=== PATIENT | male | born 1955 | race Caucasian/White ===

== ENCOUNTER 2023-02-09 14:10 | Inpatient (IN) | payer MEDICARE, MEDICAID, SELFPAY ==
--- NOTE | 2023-02-09 | EEG_ITS ---
FINDINGS: The waking background activity consists of low-voltage fast frequencies seen diffusely intermixed with a low-voltage posterior 10 hertz alpha frequency. Photic stimulation is without activation. Brief periods of drowsiness are characterized by mild background slowing. No focal, lateralizing, or paroxysmal discharges are seen. Frequent eye movement and eye opening artifacts are noted. IMPRESSION: This waking EEG is considered within normal limits. MD KEILA Álvarez/AILEEN / [phone]
--- NOTE | ~2023-02-09 | CT_ITS ---
EXAMINATION: CT HEAD WITHOUT CONTRAST (STROKE PROTOCOL) CLINICAL INFORMATION: Stroke protocol. Acute onset altered mental status. COMPARISON: None available. TECHNIQUE: Contiguous axial imaging was performed from the skull base to vertex without intravenous administration of contrast. This CT examination was performed using dose optimization techniques as appropriate, variously including the following: *Automated exposure control *Adjustment of mA and/or kV according to patient size (this includes techniques or standardized protocols for targeted exams where dose is matched to indication/reason for exam; i.e. extremities or head) *Use of iterative reconstruction technique DLP: 762.57 mGy-cm FINDINGS: Ventricles, sulci and cisterns are abnormally dilated. There is no midline shift, no abnormal intra- or extra- axial fluid accumulation. Kumar and white matter differentiation is normal. Bone window images show no evidence of skull fracture. There is prominent bowing of anterior nasal septum to the left. Semilunar shaped polypoid mucosal lesion is seen at anterior wall of right maxillary sinus measuring 1.4 cm in AP diameter, 2.4 cm in width. Moderate mucosal thickening is seen at the floor of left maxillary sinus. Bilateral ethmoid sinuses show marked mucosal thickening and opacification. Moderate circumferential mucosal thickening of left frontal sinus is also seen. CT/CT head for stroke IMPRESSION: 1. Prominent age related cerebral atrophy and ventriculomegaly. 2. No intracranial hemorrhage or skull fracture is seen. 3. No evidence of space occupying lesion could be found. 4. The current plain CT scan of the brain shows no diagnostic evidence of acute cerebral infarction. 5. Marked bilateral ethmoid sinusitis and right maxillary sinus polypoid mucosal lesion are seen. This critical result was discussed with Dr. Juan Valderrama at 1428 hours on 02/09/2023. It was ascertained that the content and urgency of the report was understood at the time of direct communication.
--- NOTE | ~2023-02-09 | XR_ITS ---
EXAMINATION: XR CHEST CLINICAL INFORMATION: Shortness of breath. COMPARISON: Chest radiograph 05/15/2017. TECHNIQUE: AP view of the chest was obtained. FINDINGS: Prominent cardiomediastinal silhouette with sternal wires, sternal fixation plate and multiple surgical clips. Surgical suture chains projecting over the left upper lobe. Background of diffuse interstitial thickening and central peribronchial cuffing. No pleural effusion or pneumothorax. Chronic bilateral rib fractures with callus formation. Surgical clips overlying the epigastrium and left upper quadrant. Stable mild asymmetric elevation of the left hemidiaphragm. XR/XR chest 1V IMPRESSION: Diffuse interstitial prominence and central peribronchial cuffing suggestive of an atypical infectious/inflammatory process and also some degree of pulmonary edema. Recommend short-term follow-up radiograph to ensure resolution.
--- NOTE | ~2023-02-09 | CT_ITS ---
EXAMINATION: CT ANGIOGRAM HEAD CT ANGIOGRAM NECK CLINICAL INFORMATION: Reason for Exam cva COMPARISON: Same day head CT TECHNIQUE: Test bolus sequences followed by intravenous administration 70 mL of Omnipaque 350. Helical imaging was performed in the axial plane from the aortic arch to the skull vertex. Delayed postcontrast imaging of the head was also performed. The data was processed at the mining engineering technologist's workstation for generation of MIP sequences. Angled MIPs and volume rendered reformatted images were also generated at an offline 3D workstation. Stenoses are assessed in accordance with Cantrell et al. Quantification of Carotid Stenosis on CT Angiography. AJR 2006. 27(1):13-19. This CT examination was performed using dose optimization techniques as appropriate, variously including the following: *Automated exposure control *Adjustment of mA and/or kV according to patient size (this includes techniques or standardized protocols for targeted exams where dose is matched to indication/reason for exam; i.e. extremities or head) *Use of iterative reconstruction technique DLP: 1592.91 mGy-cm FINDINGS: CT HEAD: Noncontrast head CT findings discussed separately. No pathologic intra-axial enhancement or regional oligemia. Chronic left orbital floor fracture deformity seen medial to the infraorbital foramen with some herniated inferior extraconal fat through the defect. Moderate paranasal sinus mucosal disease. CTA HEAD: Calcific plaque of the proximal intradural left vertebral artery appears to contribute to at least mild stenosis, noting motion artifact limits assessment for accurate grading of luminal patency. Calcific plaque along the bilateral carotid siphons contributes to mild to moderate left cavernous and mild to moderate right distal cavernous ICA stenosis. Otherwise no significant stenosis or occlusion in the anterior or posterior circulation. 2 mm infundibular origin arising from the right terminal ICA at the right posterior communicating artery origin. No aneurysms and no high flow vascular malformations. Timing of the contrast bolus allows assessment of the major dural venous sinuses, which all opacify normally CTA NECK: Classic 3 vessel branching pattern of the aortic arch. Mild partially calcified atherosclerotic disease of the aortic arch and great vessel origins. The origins of the great vessels are patent. Significant motion artifact compromises diagnostic assessment of the cervical arterial vasculature. Densely calcified atherosclerotic plaque at the left carotid bulb results in some degree of luminal narrowing, not diagnostically assessed due to degree of motion artifact. Peripherally calcified eccentric fibrofatty plaque of the distal right cervical ICA contributes to approximately 50% luminal narrowing. The right vertebral artery is dominant. Nondiagnostic assessment of the bilateral vertebral artery origins. Otherwise, both vertebral arteries are widely patent throughout their extracranial cervical course. CT NECK: The patient is largely edentulous with a single horizontally impacted tooth within the anterior left maxilla remaining. Motion artifact limits diagnostic assessment of the neck soft tissues. Asymmetric skin thickening and subcutaneous edema in the left face versus artifact can be correlated with physical examination. Patulous upper thoracic esophagus with air-fluid level more inferiorly. Status post median sternotomy and CABG. Suspected emphysematous changes in the lungs and left upper lobe postsurgical scarring. Reversal of the lower cervical lordosis and cervical spondylitic changes. Multilevel high-grade neural foraminal narrowing. Leftward curvature at the cervicothoracic junction and mild rightward upper thoracic curvature. CT/CT angio head neck stroke IMPRESSION: 1. No hemodynamically significant stenosis or occlusion in the head or neck, noting nondiagnostic assessment of the bilateral vertebral artery origins. This critical result was discussed with Dr. Valderrama at 2:49 PM on 02/09/2023 and it was ascertained that the content and urgency of the report was understood at the time of direct communication. 2. Densely calcified atherosclerotic plaque at the left carotid bulb results in some degree of luminal narrowing, not diagnostically assessed due to degree of motion artifact. 3. Peripherally calcified eccentric fibrofatty plaque of the distal right cervical ICA contributes to approximately 50% luminal narrowing. 4. Calcific plaque of the proximal intradural left vertebral artery appears to contribute to at least mild stenosis, noting motion artifact limits accurate grading of luminal patency.
--- NOTE | 2023-02-09 14:12 | ED_ITS ---
HPI - Neuro Symptoms/Deficit General Chief Complaint: Altered Mental Status Stated Complaint: STROKE ALERT,LKW 45 MINS AGO Time Seen by Provider: 02/09/23 14:12 Source: RN notes reviewed Mode of arrival: EMS Limitations: no limitations History of Present Illness HPI Narrative: Patient with multiple psych disorders including schizophrenia dementia came from residential for decreased responsiveness. Patient was seen normal at 9 a.m. walking down stairs at 115 p.m. patient was in his bed confused when EMS reached patient was saturating in high 80s with generalized weakness and left facial droop was noticed, no seizure active overall patient was weak Related Data Home Medications Medication Instructions Recorded Confirmed aspirin 81 mg tablet,delayed 81 mg PO DAILY 02/09/23 02/09/23 release atorvastatin 40 mg tablet 40 mg PO BEDTIME 02/09/23 02/09/23 chlorpromazine 100 mg tablet 100 mg PO BEDTIME 02/09/23 02/09/23 cholecalciferol (vitamin D3) 1,250 1,250 mcg PO QMONTH 02/09/23 02/09/23 mcg (50,000 unit) tablet divalproex 250 mg tablet,extended 250 mg PO BEDTIME 02/09/23 02/09/23 release 24 hr divalproex 500 mg tablet,extended 1,000 mg PO BEDTIME 02/09/23 02/09/23 release 24 hr fluticasone furoate 100 1 inh inhalation DAILY 02/09/23 02/09/23 mcg-vilanterol 25 mcg/dose inhalation powder (Breo Ellipta) metoprolol succinate 25 mg 25 mg PO DAILY 02/09/23 02/09/23 tablet,extended release 24 hr ranolazine 500 mg tablet,extended 500 mg PO BID 02/09/23 02/09/23 release,12 hr valsartan 80 mg tablet 80 mg PO BID 02/09/23 02/09/23 Allergies Allergy/AdvReac Type Severity Reaction Status Date / Time haloperidol [From Haldol] Allergy Unknown Verified 02/09/23 14:58 Penicillins Allergy Unknown Verified 02/09/23 14:58 Review of Systems 2 Review of Systems: Yes Unobtainable due to mental status PMFSH Past Medical History Medical History TIA (transient ischemic attack) CAD (coronary artery disease) PTSD (post-traumatic stress disorder) HTN (hypertension) Schizoaffective disorder COPD (chronic obstructive pulmonary disease) Dementia Surgical History Hx of CABG Social History Social History Smoked in Last 30 Days: Yes Use of substances other than those prescribed or required for medical reasons: No Advance Directives: No Advance Directives Information Provided: No Physical Exam 2 Vital Signs: Vital Signs: Last Vital Signs Temp 97.5 F 02/09/23 14:47 Pulse 79 02/09/23 20:13 Resp 16 02/09/23 20:13 BP 124/67 02/09/23 20:13 Pulse Ox 99 02/09/23 20:13 O2 Del Method Nasal Cannula 02/09/23 20:13 O2 Flow Rate 4 02/09/23 20:13 Oxygen Flow Rate 4 02/09/23 14:38 BMI result Body Mass Index 25.0 Appearance: Alert. Oriented X3. No acute distress. Eyes: PERRLA, No Nystagmus ENT: Pharynx normal. Oral Mucosa moist Neck: Normal inspection. Neck supple. CVS: Normal heart rate and rhythm. Pulses normal. Respiratory: No respiratory distress. Equal air entry bilateral, bilateral character of Abdomen: Soft and nontender. Bowel sounds are present, no mass palpable, no CVA tenderness Skin: Skin warm and dry. Normal skin color. Normal skin turgor. Extremities: No lower extremity edema. No calf tenderness Neuro: Alert but confused with garbled speech. Moving all 4 extremities right than the left? Left facial droop Course Reevaluation(s) Reevaluation #1: Patient showed remarkable improvement punching and pushing nursing staff, no deficit noticed speech is better ?TIA vs hypoxic will hold TNK Time: 14:47 Medications Administered Generic Name Dose Route Start Last Admin Trade Name Freq PRN Reason Stop Dose Admin Atorvastatin Calcium 40 mg 02/09/23 21:00 02/09/23 21:21 Atorvastatin Calcium 40 Mg Tablet PO Not Given BEDTIME NILAM Chlorpromazine HCl 100 mg 02/09/23 21:00 12 21:21 Chlorpromazine Hcl 100 Mg Tablet PO Not Given BEDTIME NILAM Divalproex Sodium 250 mg 02/09/23 21:00 12/05/23 21:22 Divalproex Sodium Er 250 Mg Tab.Er.24h PO Not Given BEDTIME NILAM Divalproex Sodium 1,000 mg 02/09/23 21:00 02/09/23 21:22 Divalproex Sodium Er 500 Mg Tab.Er.24h PO Not Given BEDTIME NILAM Enoxaparin Sodium 40 mg 02/09/23 20:00 02/09/23 21:15 Enoxaparin Sodium 40 Mg/0.4 Ml Syringe SUBCUT Not Given Q24H NILAM Sodium Chloride 1,000 mls @ 100 mls/hr 02/09/23 19:30 02/09/23 21:08 Ns IVCONT 100 mls/hr .Q10H NILAM Administration Ranolazine 500 mg 02/09/23 21:00 02/09/23 21:22 Ranolazine 500 Mg Tab.Er.12h PO Not Given BID NILAM Valsartan 80 mg 02/09/23 21:00 02/09/23 21:22 Valsartan 80 Mg Tablet PO Not Given BID [facility] Protocol Discontinued Medications Generic Name Dose Route Start Last Admin Trade Name Freq PRN Reason Stop Dose Admin Aspirin 300 mg 02/09/23 19:27 02/09/23 21:14 Aspirin 300 Mg Supp.Rect MS 02/09/23 19:28 Not Given ONCE ONE Sodium Chloride 1,000 mls @ 999 mls/hr 02/09/23 17:26 02/09/23 18:05 Ns IV 02/09/23 18:26 999 mls/hr .Q1H1M ONE Administration Iohexol 100 ml 02/09/23 14:35 02/09/23 14:35 Iohexol 350 Mg/Ml 100 Ml Infus..Btl IV 02/09/23 14:36 70 ml ONCE ONE Administration Lorazepam 1 mg 02/09/23 14:44 02/09/23 14:48 Lorazepam 2 Mg/Ml Vial IVPUSH 02/09/23 14:45 1 mg ONCE ONE Administration Medical Decision Making Medical Decision Making MDM Narrative: Patient with acute change in mental status with left-sided facial droop and transient left-sided weekness CT head CTA negative for acute possible patient has TIA. Patient is still confused from his baseline per nursing staff patient is up alert take your that in the ER patient is more confused not at his baseline. Etiology not very clear we will admit patient for metabolic encephalopathy questionable TIA Differential Diagnosis Differential Diagnoses: The differential diagnosis associated with the presentation includes Metabolic encephalopathy/TIA/CVA/seizure/hypoxia/CHF Admission/Observation Consideration of admission/observation: Escalation of care including admission/observation considered Consult Healthcare Provider Management of the patient was discussed with: Hospitalist Lab Data MDM Lab Attestation statement: I reviewed the patient's lab results. 02/09/23 15:02 02/09/23 15:02 Labs: Lab Results 02/09/23 02/09/23 02/09/23 Range/Units 14:37 15:02 15:07 WBC 8.2 (4.8-10.8) X10*3/uL RBC 5.02 (4.60-5.80) X10*6/uL Hgb 15.2 (14.0-18.0) g/dl Hct 46.1 (42.0-52.0) % MCV 91.8 (80.0-98.0) fL MCH 30.3 (27.0-33.0) pg MCHC 33.0 (31.0-36.0) g/dl RDW 14.1 (11.0-16.0) % Plt Count 178 (160-400) X10*3/uL MPV 9.4 (9.4-12.4) fL Immature Gran % (Auto) 0.6 H (0.0-0.4) % Neut % (Auto) 77.8 H (45-73) % Lymph % (Auto) 15.4 L (20-40) % [place] % (Auto) 4.5 (2-11) % Eos % (Auto) 1.2 (0-4) % Baso % (Auto) 0.5 (0-2) % Lymph # (Auto) 1.3 (1.2-4.9) X10*3/uL [place] # (Auto) 0.4 (0.1-1.2) X10*3/uL Eos # (Auto) 0.1 (0.0-0.4) X10*3/uL Baso # (Auto) 0.0 (0.0-0.2) X10*3/uL Abs Immat Gran (auto) 0.05 H (0.00-0.03) X10*3/uL Absolute Neuts (auto) 6.4 (2.0-8.3) x10*3/uL Absolute Nucleated RBC 0.000 (0.0-0.012) X10*3/uL Nucleated RBC % (auto) 0.0 (0.0-0.2) /100WBC PT 11.8 (11.1-13.3) SEC INR 1.0 (0.9-1.1) APTT 36.6 H (26.0-36.4) SEC VBG pH 7.40 (7.32-7.43) VBG pCO2 36 mmHg VBG pO2 86 mmHg VBG HCO3 23 (22-26) mmol/L VBG O2 Saturation 98.0 % VBG Base Excess -1.1 mmol/L Sodium 139 (135-145) mmol/L Potassium 4.1 (3.3-5.1) mmol/L Chloride 107 (96-108) mmol/L Carbon Dioxide 23 (22-29) mmol/L Anion Gap 13 (12-20) BUN 23 H (9-16) mg/dL Creatinine 0.73 (0.5-1.4) mg/dL Estim Creat Clear Calc 90.5 Estimated GFR > 60 POC Glucose 85 (60-115) mg/dL Random Glucose 89 (60-115) mg/dL Calcium 8.9 (8.4-10.2) mg/dL Total Bilirubin 0.7 (0.0-1.0) mg/dL AST 19 (5-37) U/L ALT 12 (0-40) U/L Alkaline Phosphatase 57 (39-117) U/L Total Creatine Kinase 71 (38-174) U/L Troponin I High Sens 5.7 (<3.5-35.0) ng/L B-Natriuretic Peptide 34 (<100) pg/mL Total Protein 6.5 (6.5-8.0) g/dL Albumin 3.8 (3.5-5.0) g/dL Triglycerides 84 (<150) mg/dL Cholesterol 98 (<200) mg/dL LDL Cholesterol, Calc 57 (<100) mg/dL HDL Cholesterol 25 L (>40) mg/dL Valproic Acid 32.5 L (50.0-100.0) mcg/mL ABG Data Attestation ABG: I personally reviewed and interpreted this ABG as follows: Interpretation: Normal venous gas Independent Interpretation I performed an independent interpretation of an: EKG and CT Scan Interpretation: Normal sinus rhythm heart rate 82 beats per minute left bundle-branch block no acute ST T wave changes no ischemia Radiology Impression Discussion of test interpretation with radiology: I have reviewed the radiologist's reading. Radiologist Impression: Negative CT scan of the head and CTA negative for LVO Independent Historian Clinical information obtained from an independent historian. History obtained from or confirmed by: EMS and Other (RN) External Record Review External record reviewed: Outpatient record NIH Stroke Scale Internal: Initial- Upon Arrival Time: 14:10 Level of Consciousness: Alert Level of Consciousness Questions: Answers one question correctly Level of Consciousness Commands: Performs both tasks correctly Best Gaze: Normal Visual: No visual loss Facial Palsy: Minor paralyis Motor Arm (Right): No drift Motor Arm (Left): Drift Motor Leg (Right): No drift Motor Leg (Left): Drift Limb Ataxia: Absent Sensory: Normal Best Language: No aphasia Dysarthia: Normal Extinction and Inattention: No abnormality Score: 4 Discharge Plan Discharge Clinical Impression: Acute encephalopathy Patient Disposition: Admitted As Inpatient
--- NOTE | 2023-02-09 14:13 | ECG_ITS ---
Test Reason : AMS Blood Pressure : / mmHG Vent. Rate : 082 BPM Atrial Rate : 082 BPM P-R Int : 164 ms QRS Dur : 172 ms QT Int : 430 ms P-R-T Axes : 045 020 087 degrees QTc Int : 502 ms Normal sinus rhythm Left bundle branch block Abnormal ECG No previous ECGs available Referred By: Juan Valderrama Electronically Signed By:KRISTI DIAS
[2023-02-09 14:17] VITALS: BP 112/72; PULSE 80; O2SAT 80
[2023-02-09] MEDS: iohexoL 350 MG/ML 100 ML INFUS..BTL IV (14:35)
[2023-02-09 14:38] VITALS: BP 143/81; PULSE 82; RESP 23; O2SAT 99; BMI 25.0
[2023-02-09 14:47] VITALS: TEMP 36.4
[2023-02-09] MEDS: LORazepam 2 MG/ML VIAL 1 MG IVPUSH (14:48)
[2023-02-09 14:51] LABS: Glucose, Whole Blood 85 mg/dL (60-115)
[2023-02-09 15:06] LABS: MANUAL DIFF FLAG NO
[2023-02-09 15:09] LABS: Basophils Percent Auto 0.5 % (0-2); Eosinophils Absolute Auto 0.1 X10*3/uL (0.0-0.4); Eosinophils Percent Auto 1.2 % (0-4); Hematocrit 46.1 % (42.0-52.0); Hemoglobin 15.2 g/dl (14.0-18.0); Imm Gran Abs Auto 0.05 X10*3/uL (0.00-0.03); Imm Gran Pct Auto 0.6 % (0.0-0.4); Lymphocytes Absolute Auto 1.3 X10*3/uL (1.2-4.9); Lymphocytes Percent Auto 15.4 % (20-40); Mean Corpuscular Hemoglobin 30.3 pg (27.0-33.0); Mean Corpuscular Volume 91.8 fL (80.0-98.0); Mean Platelet Volume 9.4 fL (9.4-12.4); Monocytes Absolute Auto 0.4 X10*3/uL (0.1-1.2); Monocytes Percent Auto 4.5 % (2-11); Neutrophils Absolute Auto 6.4 x10*3/uL (2.0-8.3); Neutrophils Percent Auto 77.8 % (45-73); Platelet Count 178 X10*3/uL (160-400); Red Blood Count 5.02 X10*6/uL (4.60-5.80); Red Cell Distribution Width 14.1 % (11.0-16.0); White Blood Count 8.2 X10*3/uL (4.8-10.8)
--- NOTE | 2023-02-09 15:09 | MHC.STROKE ---
1410 ARRIVED VIA EMS UNRESPONSIVE LEFT DROOP, STROKE PROTOCOL ACTIVATED, CTH NO BLEED. LAST KNOWN WELL 0900 THEN HE WAS NOT SEEN AGAIN UNTIL [id number] DISCOVERY TIME. FOUND SLOW TO RESPOND, INCONSISTENT EXAM BILATERAL ARM NO MOVEMENT AT TIMES THEN SLIGHT MOVEMENT, [place] LEGS RESTLESS, LEFT DROOP BUT HE DOES NOT HAVE ANY TEETH IN, SLIGHT GAZE AND NEGLECT. GURGLING, UNABLE TO CLEAR HIS THROAT, NOT FOLLOWING ANY COMMANDS, NO UNILATERAL NEURO FINDINGS THAT ARE CONSISTENT. NIHSS = 20, NPO FAILED SWALLOW SCREEN. DISCUSSED TIMELINE AND EXAM WITH DR. CRENSHAW AND WITH DR. WALSH AND MARIA LUZ 899. TNK CONTRAINDICATED.
[2023-02-09 15:11] LABS: Venous Blood Gas Refer to POC result
[2023-02-09 15:11] LABS: VBG Base Excess -1.1 mmol/L; VBG HCO3 23 mmol/L (22-26); VBG pCO2 36 mmHg; VBG pO2 86 mmHg
[2023-02-09 15:14] LABS: Prothrombin Time 11.8 SEC (11.1-13.3)
[2023-02-09 15:17] LABS: Partial Thromboplastin Time 36.6 SEC (26.0-36.4)
[2023-02-09 15:28] LABS: Alanine Aminotransferase 12 U/L (0-40); Albumin Level 3.8 g/dL (3.5-5.0); Alkaline Phosphatase 57 U/L (39-117); Anion Gap 13 (12-20); Aspartate Amino Transferase 19 U/L (5-37); Bilirubin Total 0.7 mg/dL (0.0-1.0); Blood Urea Nitrogen 23 mg/dL (9-16); Calcium 8.9 mg/dL (8.4-10.2); Carbon Dioxide 23 mmol/L (22-29); Chloride 107 mmol/L (96-108); Creatinine Clr Calc Pharmacy 90.5; Estimated Glomerular Filt Rate > 60; Glucose Random 89 mg/dL (60-115); Potassium 4.1 mmol/L (3.3-5.1); Sodium 139 mmol/L (135-145); Total Protein 6.5 g/dL (6.5-8.0)
[2023-02-09 15:31] LABS: Troponin-I High Sensitivity 5.7 ng/L (<3.5-35.0)
--- NOTE | 2023-02-09 15:40 | PC.NURSE ---
pt CRISSYA from [facility] for ? stroke alert. EMS reporting L sided facial droop. pt A&Ox3 at baseline, went out to smoke a cigarette at 0900 this morning. when staff checked on him at approx 1315 pt was unresponsive in bed, had a L sided facial droop, was weak and moaning. pt required suction to oral airway x2 as he was unable to manage his own secretions. SaO2 low 80s - started on a NRB 15L O2 came up to 95%. EMS placed an 18G in the LAC. POC 96 for EMS
[2023-02-09 16:06] LABS: Stroke Lab Use COMPLETE
[2023-02-09 16:09] LABS: B Type Natriuretic Peptide 34 pg/mL (<100)
[2023-02-09 16:10] LABS: Valproate 32.5 mcg/mL (50.0-100.0)
--- NOTE | 2023-02-09 17:05 | PHA.MEDREC ---
Pharmacy Consult ? Medication Reconciliation Pharmacy has completed the medication reconciliation. Patient came from [facility] with a medication list. Rebeca Patino, aloD
--- NOTE | 2023-02-09 17:12 | PC.NURSE ---
mission care staff report pts baseline is alert and ambulatory, able to speak clearly and in full sentences, able to maintain saliva. no seizure hx.
[2023-02-09 17:46] VITALS: BP 125/98; RESP 26; O2SAT 96
[2023-02-09] MEDS: 0.9 % Sodium Chloride 1,000 ML 999 ML IV (18:05)
--- NOTE | 2023-02-09 18:25 | PC.NURSE ---
pt incontinent of urine. linens changed. rolled pt - he became combative, swearing at staff. stopped once linens back in order. [place] placed on pt for urine collection
--- NOTE | 2023-02-09 19:34 | P.HPHOSP_ITS ---
History of Present Illness Date of Service: 02/09/23 Attending physician on admission: Rodrigo Cifuentes Chief Complaint: ams, left facial droop 67-year-old male with history of TIA, CAD s/p CABG, ischemic cardiomyopathy, aortic insufficiency, unspecified CHF, COPD, vascular dementia with mood disorder, schizoaffective disorder, hypertension, and idiopathic neuropathy presents to the ED earlier today via EMS from [facility] where he resides for evaluation of unresponsiveness, altered mental status and left-sided facial droop. Per SNF staff, patient awoke this morning and was ambulatory around 09:00. Around 115 this afternoon, patient was found unresponsive in bed with oximetry 80%. When aroused, he was noted to have left-sided facial droop, generalized weakness, confusion and was noted to be moaning. Per staff, his baseline is alert and oriented with some confusion. EMS was called and patient was suctioned x2 and placed on non-rebreather maintaining oximetry of 95%. No known seizure history. He arrived to the ED on stroke alert. Vitals at the time revealed a mild hypertension 143/81, vitals otherwise stable, maintaining oximetry 99% on 4 L supplemental O2 via nasal cannula. Hematology studies unremarkable. Renal function normal, electrolyte levels normal. Total CK 71. Troponin 5.7, BNP 34. Coag studies normal. VBG reassuring with pH 7.40, pCO2 36, bicarb 23. Valproic acid level slightly subtherapeutic at 32.5. Head CT negative for any acute intracranial abnormality or space-occupying lesion. No diagnostic evidence of acute cerebral infarction. There is prominent age-related cerebral atrophy. CT of the head/neck negative for any hemodynamically significant stenosis or LVO though assessment of the bilateral vertebral artery origins was nondiagnostic. There is densely calcified atherosclerotic plaquing of the left carotid bulb resulting in luminal narrowing plaquing of the right cervical ICA contributes to about 50% luminal narrowing. Chest x-ray shows diffuse interstitial prominence and central peribronchial cuffing suggestive of atypical infectious versus inflammatory process and some degree of pulmonary edema. Seen by special education coordinator and on-call neurologist notified. Patient is outside the window for T and K. He did fail a bedside swallow evaluation and is noted to be unable to clears throat, not follow commands and has persistent left-sided facial droop but no other unilateral focal neuro deficits. In the ED, given 1 mg IV lorazepam and 1 L IV NS. Review of Systems 2 Review of Systems: Yes Unobtainable due to mental condition and Unobtainable due to mental status PMFSH Medical History TIA (transient ischemic attack) CAD (coronary artery disease) PTSD (post-traumatic stress disorder) HTN (hypertension) Schizoaffective disorder COPD (chronic obstructive pulmonary disease) Dementia Surgical History Hx of CABG Social History Smoked in Last 30 Days: Yes Use of substances other than those prescribed or required for medical reasons: No Advance Directives: No Advance Directives Information Provided: No Meds Allergies Allergy/AdvReac Type Severity Reaction Status Date / Time haloperidol [From Haldol] Allergy Unknown Verified 02/09/23 14:58 Penicillins Allergy Unknown Verified 02/09/23 14:58 Active Medications: Current Medications Acetaminophen (Acetaminophen 325 Mg Tablet) 650 mg PO Q6H PRN PRN Reason: Pain, Mild (Pain Scale 1-3) Aspirin (Aspirin Enteric Coated 81 Mg Tablet.Dr) 81 mg PO DAILY NILAM Atorvastatin Calcium (Atorvastatin Calcium 40 Mg Tablet) 40 mg PO BEDTIME NILAM Chlorpromazine HCl (Chlorpromazine Hcl 100 Mg Tablet) 100 mg PO BEDTIME NILAM Divalproex Sodium (Divalproex Sodium Er 250 Mg Tab.Er.24h) 250 mg PO BEDTIME NILAM Divalproex Sodium (Divalproex Sodium Er 500 Mg Tab.Er.24h) 1,000 mg PO BEDTIME NILAM Enoxaparin Sodium (Enoxaparin Sodium 40 Mg/0.4 Ml Syringe) 40 mg SUBCUT Q24H NILAM Fluticasone/Vilanterol (Fluticasone/Vilanterol 100/25 Blst.W.Dev) 1 puff INHALE DAILY NILAM Sodium Chloride (Ns) 1,000 mls @ 100 mls/hr IVCONT .Q10H NILAM Melatonin (Melatonin 3 Mg Tablet) 3 mg PO BEDTIME PRN PRN Reason: Insomnia Metoprolol Succinate (Metoprolol Succinate Er 25 Mg Tab.Er.24h) 25 mg PO DAILY NILAM; Protocol Non-Formulary Medication (Cholecalciferol (Vitamin D3)) 1,250 mcg PO QMONTH [facility] Ondansetron HCl (Ondansetron Hcl 4 Mg/2 Ml Vial) 4 mg IVPUSH Q8H PRN PRN Reason: Nausea and Vomiting Ranolazine (Ranolazine 500 Mg Tab.Er.12h) 500 mg PO BID [facility] Senna (Sennosides 8.6 Mg Tablet) 17.2 mg PO BEDTIME PRN PRN Reason: Constipation Sodium Chloride (0.9 % Sodium Chloride Flush 3 Ml Syringe) 3 ml IVFLUSH QSHIFT NILAM Valsartan (Valsartan 80 Mg Tablet) 80 mg PO BID [facility]; Protocol Home Medications Medication Instructions Recorded Confirmed Last Taken Type aspirin 81 mg tablet,delayed 81 mg PO DAILY 02/09/23 02/09/23 Unknown History release atorvastatin 40 mg tablet 40 mg PO BEDTIME 02/09/23 02/09/23 Unknown History chlorpromazine 100 mg tablet 100 mg PO BEDTIME 02/09/23 02/09/23 Unknown History cholecalciferol (vitamin D3) 1,250 1,250 mcg PO QMONTH 02/09/23 02/09/23 01/19/23 History mcg (50,000 unit) tablet divalproex 250 mg tablet,extended 250 mg PO BEDTIME 02/09/23 02/09/23 Unknown History release 24 hr divalproex 500 mg tablet,extended 1,000 mg PO BEDTIME 02/09/23 02/09/23 Unknown History release 24 hr fluticasone furoate 100 1 inh inhalation DAILY 02/09/23 02/09/23 Unknown History mcg-vilanterol 25 mcg/dose inhalation powder (Breo Ellipta) metoprolol succinate 25 mg 25 mg PO DAILY 02/09/23 02/09/23 Unknown History tablet,extended release 24 hr ranolazine 500 mg tablet,extended 500 mg PO BID 02/09/23 02/09/23 Unknown History release,12 hr valsartan 80 mg tablet 80 mg PO BID 02/09/23 02/09/23 Unknown History Physical Exam 2 Vital Signs and Narrative: Vital Signs: Last Vital Signs Temp 97.5 F 02/09/23 14:47 Pulse 82 02/09/23 14:38 Resp 26 H 02/09/23 17:46 BP 125/98 H 02/09/23 17:46 Pulse Ox 96 02/09/23 17:46 O2 Del Method Nasal Cannula 02/09/23 17:46 O2 Flow Rate 4 02/09/23 17:46 Oxygen Flow Rate 4 02/09/23 14:38 BMI result Body Mass Index 25.0 Constitutional - Awake and Alert, No apparent distress Eyes - PERRLA, EOMI Cardiovascular - S1S2, RRR, No edema Respiratory - Normal lung expansion, Normal respiratory effort, No respiratory distress, CTA bilaterally Gastrointestinal - NT / ND; +BS; No rebound or guarding Extremities - no calf tenderness bilaterally, no swelling Skin - Warm/Dry Neurological - Alert & oriented to self only spelling his last name, mumbling largely incomprehensible sounds, left sided facial droop otherwise CN II-XII in tact, 4/5 strength BUE and BLE. patellar reflexes absent bilaterally. Unable to follow any additional commands for further neuro exam Results Labs 02/09/23 15:02 02/09/23 15:02 Labs: Laboratory Results - last 24 hr 02/09/23 02/09/23 02/09/23 14:37 15:02 15:07 MCV 91.8 MCH 30.3 MCHC 33.0 RDW 14.1 Plt Count 178 MPV 9.4 Immature Gran % (Auto) 0.6 H Neut % (Auto) 77.8 H Lymph % (Auto) 15.4 L [place] % (Auto) 4.5 Eos % (Auto) 1.2 Baso % (Auto) 0.5 Lymph # (Auto) 1.3 [place] # (Auto) 0.4 Eos # (Auto) 0.1 Baso # (Auto) 0.0 Abs Immat Gran (auto) 0.05 H Absolute Neuts (auto) 6.4 Absolute Nucleated RBC 0.000 Nucleated RBC % (auto) 0.0 PT 11.8 INR 1.0 APTT 36.6 H VBG pH 7.40 VBG pCO2 36 VBG pO2 86 VBG HCO3 23 VBG O2 Saturation 98.0 VBG Base Excess -1.1 Anion Gap 13 Estim Creat Clear Calc 90.5 Estimated GFR > 60 POC Glucose 85 Random Glucose 89 Calcium 8.9 Total Bilirubin 0.7 AST 19 ALT 12 Alkaline Phosphatase 57 Total Creatine Kinase 71 B-Natriuretic Peptide 34 Total Protein 6.5 Albumin 3.8 Valproic Acid 32.5 L Imaging Radiologist's Impressions: Impressions Head CT 02/09/23 14:17 IMPRESSION: 1. Prominent age related cerebral atrophy and ventriculomegaly. 2. No intracranial hemorrhage or skull fracture is seen. 3. No evidence of space occupying lesion could be found. 4. The current plain CT scan of the brain shows no diagnostic evidence of acute cerebral infarction. 5. Marked bilateral ethmoid sinusitis and right maxillary sinus polypoid mucosal lesion are seen. This critical result was discussed with Dr. Juan Valderrama at 1428 hours on 02/09/2023. It was ascertained that the content and urgency of the report was understood at the time of direct communication. Head/Neck CTA 02/09/23 14:36 IMPRESSION: 1. No hemodynamically significant stenosis or occlusion in the head or neck, noting nondiagnostic assessment of the bilateral vertebral artery origins. This critical result was discussed with Dr. Valderrama at 2:49 PM on 02/09/2023 and it was ascertained that the content and urgency of the report was understood at the time of direct communication. 2. Densely calcified atherosclerotic plaque at the left carotid bulb results in some degree of luminal narrowing, not diagnostically assessed due to degree of motion artifact. 3. Peripherally calcified eccentric fibrofatty plaque of the distal right cervical ICA contributes to approximately 50% luminal narrowing. 4. Calcific plaque of the proximal intradural left vertebral artery appears to contribute to at least mild stenosis, noting motion artifact limits accurate grading of luminal patency. Chest X-Ray 02/09/23 15:28 IMPRESSION: Diffuse interstitial prominence and central peribronchial cuffing suggestive of an atypical infectious/inflammatory process and also some degree of pulmonary edema. Recommend short-term follow-up radiograph to ensure resolution. Assessment and Plan (1) Acute encephalopathy: Status: Acute (2) Facial droop: Status: Acute Plan 67-year-old male with history of TIA, CAD s/p CABG, ischemic cardiomyopathy, aortic insufficiency, unspecified CHF, COPD, vascular dementia with mood disorder, schizoaffective disorder, hypertension, and idiopathic neuropathy to be observed for acute encephalopathy likely secondary to CVA vs seizure. #Acute encephalopathy- secondary to seizure vs CVA -Favoring seizure given initial unresponsiveness, followed by AMS, hypoxia. However, given persistent confusion and aphasia and left sided facial droop, must consider CVA -Head CTA negative and any acute intracranial abnormality. CTA of the head/neck negative for any hemodynamically significant stenosis or LVO though does show moderate luminal narrowing at multiple sites -failed bedside swallow evaluation. Keep NPO for now pending speech evaluation -given 300 mg aspirin NC. Continue ASA daily. -neurology consult -defer MRI brain to neurology -EEG ordered -seizure precautions. Given ativan 1mg x1 in the ed -neurochecks -check lipid panel, resume statin once able to tolerate p.o. -monitor on telemetry # acute hypoxemic respiratory failure -likely secondary to possible seizure versus viral infection -VBG reassuring -negative for COVID-19, influenza, RSV. Check full viral respiratory panel -chest x-ray shows possible atypical infectious versus inflammatory process -continue supplemental O2 to maintain oximetry greater than 92% # acute cough -CXR shows possible atypical infectious versus inflammatory process versus pulmonary edema -patient is afebrile, no leukocytosis -negative for COVID-19, influenza, RSV. Check full viral respiratory panel -symptomatic management -defer antibiotics at this time #Vascular dementia with behavioral disturbance -baseline mentation A&O, intermittent confusion per SNF staff # schizoaffective disorder -continue home meds # COPD -no acute exacerbation -continue maintenance inhalers, albuterol p.r.n. # CAD s/p CABG/ischemic cardiomyopathy, HLD -continue ASA, statin, beta-katerine # hypertension -blood pressure reasonably controlled -resume antihypertensives a.m. DVT prophylaxis-Lovenox Full code Healthcare proxy invoked by SNF-[facility] [phone] Quality Stroke Does the patient have a stroke diagnosis?: Yes Reason for No Anti-thrombotic by Day Two: Drug treatment not indicated VTE Prior VTE?: No VTE Risk Level:: Medical - moderate - high VTE Device Contraindication: Treatment Not Indicated VTE Drug Contraindication: N/A - Med Ordered
[2023-02-09 20:00] LABS: Cholesterol 98 mg/dL (<200); HDL Cholesterol 25 mg/dL (>40); LDL Cholesterol Calculated 57 mg/dL (<100); Triglycerides 84 mg/dL (<150)
[2023-02-09 20:13] VITALS: BP 124/67; PULSE 79; RESP 16; O2SAT 99
[2023-02-09] MEDS: 0.9 % Sodium Chloride 1,000 ML 100 ML IVCONT (21:08)
--- NOTE | 2023-02-09 21:20 | PC.NURSE ---
Pt agitated and refusing lovenox and rectal aspirin at this time.
[2023-02-10 01:46] VITALS: BP 154/93; PULSE 94; RESP 20; O2SAT 95
[2023-02-10] MEDS: ondansetron HCL 4 MG/2 ML VIAL IVPUSH (02:37)
--- NOTE | 2023-02-10 02:50 | PC.NURSE ---
Pt with large coffee ground emesis. Dr. Wadsworth made aware via [employer] connect.
--- NOTE | 2023-02-10 03:07 | PC.NURSE ---
Plan for compazine at this time.
[2023-02-10] MEDS: Prochlorperazine Edisylate 10 MG/2 ML VIAL IVPUSH (03:15)
[2023-02-10] MEDS: Pantoprazole Sodium 40 MG/10 ML VIAL 80 MG IVPUSH (03:59)
--- NOTE | 2023-02-10 04:11 | PC.NURSE ---
Addendum entered by Shaila Carson 02/10/23 04:12: Camera 27 Original Note: Avasure placed at this time for pt trying to scoot out of bed multiple times.
[2023-02-10] MEDS: 0.9 % Sodium Chloride 1,000 ML 100 ML IVCONT ×2 (05:27→15:43)
[2023-02-10 06:06] VITALS: BP 114/73; PULSE 104; RESP 19; TEMP 37; O2SAT 92
[2023-02-10 07:46] VITALS: BP 114/73; PULSE 104; O2SAT 92
--- NOTE | 2023-02-10 08:17 | PC.NURSE ---
PT AMB TO THE BR WITH 1 ASSIST. SHUFFLES WHICH IS BASELINE
--- NOTE | 2023-02-10 09:37 | PC.NURSE ---
pt to EEG, will go up to inpatient room when complete.
--- NOTE | 2023-02-10 12:18 | PC.NURSE ---
spoke with Speech Pathology regarding swallow eval. PATTERNMAKER APPRENTICE METAL unable to perform due to patient being too lethargic, will tiger back if situation changes. this RN tiger texted hospitalist to determine if it is okay for patient to skip morning medications due to patient being unable to swallow
[2023-02-10 14:17] LABS: Anion Gap 15 (12-20); Blood Urea Nitrogen 17 mg/dL (9-16); Calcium 8.4 mg/dL (8.4-10.2); Carbon Dioxide 21 mmol/L (22-29); Chloride 113 mmol/L (96-108); Estimated Glomerular Filt Rate > 60; Glucose Random 92 mg/dL (60-115); Potassium 4.2 mmol/L (3.3-5.1); Sodium 145 mmol/L (135-145)
--- NOTE | 2023-02-10 14:38 | PC.NURSE ---
patient is disoriented, alert to self only, occasionally gets agitated, denies pain at this time
--- NOTE | 2023-02-10 14:50 | MHC.SLORD ---
Speech Language Pathology Order Status: OIL PIPELINE OPERATOR attempted to see patient several times throughout the day. Patient either away from room or not appropriate for eval. Checked in w/ RN at end of day, patient still not appropriate for OIL PIPELINE OPERATOR swallow eval. OIL PIPELINE OPERATOR eval deferred until tomorrow. notified.
[2023-02-10 14:56] VITALS: PULSE 100; RESP 16; O2SAT 93
[2023-02-10 15:35] LABS: Hematocrit 46.7 % (42.0-52.0); Hemoglobin 15.6 g/dl (14.0-18.0); Mean Corpuscular HGB Conc 33.4 g/dl (31.0-36.0); Mean Corpuscular Hemoglobin 30.5 pg (27.0-33.0); Mean Corpuscular Volume 91.4 fL (80.0-98.0); Mean Platelet Volume 10.1 fL (9.4-12.4); Platelet Count 188 X10*3/uL (160-400); Red Blood Count 5.11 X10*6/uL (4.60-5.80); Red Cell Distribution Width 14.2 % (11.0-16.0); White Blood Count 10.7 X10*3/uL (4.8-10.8)
--- NOTE | 2023-02-10 18:07 | PC.NURSE ---
Deniz texted Giulia RN upstairs who stated they are ready for the pt upstairs. Stated a floor refinisher will come get the pt
[2023-02-10] MEDS: Enoxaparin Sodium 40 MG/0.4 ML SYRINGE SUBCUT (20:18)
[2023-02-10 23:26] VITALS: BP 119/68; PULSE 92; RESP 18; TEMP 36.6; O2SAT 96
[2023-02-11 03:23] VITALS: BP 130/74; PULSE 94; RESP 18; TEMP 36.2; O2SAT 96
[2023-02-11] MEDS: 0.9 % Sodium Chloride 1,000 ML 100 ML IVCONT ×2 (05:23→14:20)
[2023-02-11 06:47] LABS: Prothrombin Time Whole Bld POC 12.9 sec (11.1-13.5); ~PT, ~INR - Anti Coag Clinic 1.1 (0.9-1.1)
[2023-02-11 07:41] VITALS: BP 144/77; PULSE 92; RESP 20; TEMP 36.6; O2SAT 97
[2023-02-11] MEDS: Aspirin Enteric Coated 81 MG TABLET.DR PO (08:33)
[2023-02-11] MEDS: Valsartan 80 MG TABLET PO (08:34)
[2023-02-11] MEDS: Ranolazine 500 MG TAB.ER.12H PO (08:34)
[2023-02-11] MEDS: 0.9 % Sodium Chloride Flush 3 ML SYRINGE IVFLUSH (08:36)
[2023-02-11 09:16] LABS: Anion Gap 14 (12-20); Blood Urea Nitrogen 14 mg/dL (9-16); Calcium 8.3 mg/dL (8.4-10.2); Carbon Dioxide 22 mmol/L (22-29); Chloride 115 mmol/L (96-108); Creatinine Clr Calc Pharmacy 103.2; Estimated Glomerular Filt Rate > 60; Glucose Random 98 mg/dL (60-115); Potassium 3.8 mmol/L (3.3-5.1); Sodium 147 mmol/L (135-145)
[2023-02-11 09:38] VITALS: BP 144/77; PULSE 92; O2SAT 97
--- NOTE | 2023-02-11 11:07 | MHC.SL.SWA ---
Risk of Aspiration Due to: Neurological Condition Weak Cough Dysphasia Diet Status: UPGRADE Liquid Consistency and Strategies for Safe Swallow: Liquid Intake Recommendation: Thin Solid Food Consistency: Dietary Recommendations: Regular Additional Modifications to Solid Foods: Sauce for solids Oral Medication Intake: Whole with Liquid Please contact the pharmacy regarding appropriate crushable or liquid drug formulations that are available whenever modified delivery is recommended. Compensatory Strategies and Precautions to be Taken for Safe Swallow: Sitting Upright (90 deg) Small Bites and Sips Avoid Specific Foods Supervision While Eating and Drinking for Safe Swallow: Intermittent Supervision Foods to Avoid: Avoid hard, sticky, tough to chew foods. Provide sauce to soften foods to ease mastication d/t edentulous state Recommendation for Speech: Inpatient Speech Therapy Comment: Recommend UPGRADE to REGULAR solids, THIN liquids, and pills WHOLE. Per [facility], this is patient's baseline diet. Patient able to feed independently. CURTAIN CUTTER to continue to follow 1-2x during hospitalization. , RN, RD notified via [employer]. Coroner/Medical Examiner Clinican/Clinical Fellow: No Supervisory Statement: I have reviewed and agree with the student/clinical fellow's documentation: N/A Speech Language Pathologist: Valentine Ricks M.A., CCC-CURTAIN CUTTER
[2023-02-11 11:30] VITALS: BP 144/81; PULSE 87; RESP 20; TEMP 37.1; O2SAT 93
--- NOTE | 2023-02-11 12:39 | P.CNNE_ITS ---
History of Present Illness Data of Consult Service Date: 02/11/23 Primary Care Provider: BRENDA Dee HPI Reason for consult: Encephalopathy 67 years old male with PMH of CAD s\p CABG, ICMP, CHF, COPD, who came to hospital with altered mental status of unknown etiology. Exact circumstances were unclear and it was not clear if he had a seizure or not. He was evaluated for any infection or possibility of seizure. Now he was feeling better. When I asked him why he was here, he could not tell me. Review of Systems 2 Review of Systems: No recent cold or flu-like illness PMFSH Past Medical History Medical History TIA (transient ischemic attack) CAD (coronary artery disease) PTSD (post-traumatic stress disorder) HTN (hypertension) Schizoaffective disorder COPD (chronic obstructive pulmonary disease) Dementia Surgical History Surgical History Hx of CABG Social History Social History Household Members: None Housing: Jail Patient Tobacco Use Status: Never used Tobacco Meds Allergies Allergy/AdvReac Type Severity Reaction Status Date / Time haloperidol [From Haldol] Allergy Unknown Verified 02/09/23 14:58 Penicillins Allergy Unknown Verified 02/09/23 14:58 Active Medications: Current Medications Acetaminophen (Acetaminophen 325 Mg Tablet) 650 mg PO Q6H PRN PRN Reason: Pain, Mild (Pain Scale 1-3) Aspirin (Aspirin Enteric Coated 81 Mg Tablet.) 81 mg PO DAILY [facility] Last Admin: 02/11/23 08:33 Dose: 81 mg Atorvastatin Calcium (Atorvastatin Calcium 40 Mg Tablet) 40 mg PO BEDTIME [facility] Last Admin: 02/10/23 20:44 Dose: Not Given Chlorpromazine HCl (Chlorpromazine Hcl 100 Mg Tablet) 100 mg PO BEDTIME [facility] Last Admin: 02/10/23 20:44 Dose: Not Given Divalproex Sodium (Divalproex Sodium Er 250 Mg Tab.Er.24h) 250 mg PO BEDTIME NILAM Last Admin: 02/10/23 20:44 Dose: Not Given Divalproex Sodium (Divalproex Sodium Er 500 Mg Tab.Er.24h) 1,000 mg PO BEDTIME [facility] Last Admin: 02/10/23 20:44 Dose: Not Given Enoxaparin Sodium (Enoxaparin Sodium 40 Mg/0.4 Ml Syringe) 40 mg SUBCUT Q24H [facility] Last Admin: 02/10/23 20:18 Dose: 40 mg Fluticasone/Vilanterol (Fluticasone/Vilanterol 100/25 Blst.W.Dev) 1 puff INHALE RDAILY [facility] Last Admin: 02/11/23 07:55 Dose: Not Given Guaifenesin (Guaifenesin 200 Mg/10 Ml 10 Ml Liquid) 10 ml PO Q4H PRN PRN Reason: Cough Sodium Chloride (Ns) 1,000 mls @ 100 mls/hr IVCONT .Q10H [facility] Last Admin: 02/11/23 05:23 Dose: 100 mls/hr Melatonin (Melatonin 3 Mg Tablet) 3 mg PO BEDTIME PRN PRN Reason: Insomnia Metoprolol Succinate (Metoprolol Succinate Er 25 Mg Tab.Er.24h) 25 mg PO DAILY [facility]; Protocol Last Admin: 02/10/23 12:33 Dose: Not Given Metoprolol Tartrate (Metoprolol Tartrate 5 Mg/5 Ml Vial) 5 mg IVPUSH Q6H PRN PRN Reason: Heart Rate >110 Ondansetron HCl (Ondansetron Hcl 4 Mg/2 Ml Vial) 4 mg IVPUSH Q8H PRN PRN Reason: Nausea and Vomiting Last Admin: 02/10/23 02:37 Dose: 4 mg Ranolazine (Ranolazine 500 Mg Tab.Er.12h) 500 mg PO BID [facility] Last Admin: 02/11/23 08:34 Dose: 500 mg Senna (Sennosides 8.6 Mg Tablet) 17.2 mg PO BEDTIME PRN PRN Reason: Constipation Sodium Chloride (0.9 % Sodium Chloride Flush 3 Ml Syringe) 3 ml IVFLUSH QSHIFT [facility] Last Admin: 02/11/23 08:36 Dose: 3 ml Valsartan (Valsartan 80 Mg Tablet) 80 mg PO BID [facility]; Protocol Last Admin: 02/11/23 08:34 Dose: 80 mg Home Medications Medication Instructions Recorded Confirmed Last Taken Type aspirin 81 mg tablet,delayed 81 mg PO DAILY 02/09/23 02/09/23 Unknown History release atorvastatin 40 mg tablet 40 mg PO BEDTIME 02/09/23 02/09/23 Unknown History chlorpromazine 100 mg tablet 100 mg PO BEDTIME 02/09/23 02/09/23 Unknown History cholecalciferol (vitamin D3) 1,250 1,250 mcg PO QMONTH 02/09/23 02/09/23 01/19/23 History mcg (50,000 unit) tablet divalproex 250 mg tablet,extended 250 mg PO BEDTIME 02/09/23 02/09/23 Unknown History release 24 hr divalproex 500 mg tablet,extended 1,000 mg PO BEDTIME 02/09/23 02/09/23 Unknown History release 24 hr fluticasone furoate 100 1 inh inhalation DAILY 02/09/23 02/09/23 Unknown History mcg-vilanterol 25 mcg/dose inhalation powder (Breo Ellipta) metoprolol succinate 25 mg 25 mg PO DAILY 02/09/23 02/09/23 Unknown History tablet,extended release 24 hr ranolazine 500 mg tablet,extended 500 mg PO BID 02/09/23 02/09/23 Unknown History release,12 hr valsartan 80 mg tablet 80 mg PO BID 02/09/23 02/09/23 Unknown History Physical Exam 2 Vital Signs: Vital Signs: Last Vital Signs Temp 98.7 F 02/11/23 11:30 Pulse 87 02/11/23 11:30 Resp 20 02/11/23 11:30 BP 144/81 H 02/11/23 11:30 Pulse Ox 93 02/11/23 11:30 O2 Del Method Room Air 02/11/23 11:30 O2 Flow Rate 4 02/09/23 20:13 Oxygen Flow Rate 4 02/09/23 14:38 BMI result Body Mass Index 25.0 Neuro: Other: He is alert and awake with normal spontaneity of speech fluency comprehension and affect. Face is symmetrical. Visual thomas are full. There is no focal arm or leg weakness. Plantars were flexors. There is no abnormal movement. Speech is normal. Results Labs 02/10/23 15:01 02/11/23 08:51 Labs: Short CBC 02/10/23 Range/Units 15:01 WBC 10.7 (4.8-10.8) X10*3/uL Hgb 15.6 (14.0-18.0) g/dl Hct 46.7 (42.0-52.0) % Plt Count 188 (160-400) X10*3/uL BMP 02/10/23 02/11/23 13:52 08:51 Sodium 145 147 H Potassium 4.2 3.8 Chloride 113 H 115 H Carbon Dioxide 21 L 22 BUN 17 H 14 Creatinine 0.71 0.64 Calcium 8.[address] revealed moderately severe diffuse cerebral atrophy. CTA did not reveal any significant vascular stenosis. EEG did not reveal any significant abnormality Assessment and Plan (1) Encephalopathy: Status: Acute 67 years old man with encephalopathy on admission with no obvious etiology. Seizure disorder could not be confirmed or denied. Routine EEG was okay. Clinical history was not typical of seizure tox screen was not checked as chemically induced encephalopathy was also a common possibility. At this time my recommendation is no further intervention an outpatient follow-up with primary care physician. Of note he has underlying significant cerebral atrophy resulting in degenerative dementia. Procedures Date of Service Date of Service: 02/11/23
--- NOTE | 2023-02-11 12:50 | MHC.CM.PN ---
IMM 02/11/23 sent to guardian via mail. CM attempted to call guardian, no answer, to way to leave message. CM contacted [facility] to see if they have an updated contact number for guardian, they confirmed phone # and gave an email. CM wrote email explaining IMM and sent document in certified mail. DC plan is for Pt to return to [facility] where he resides [facility] terminal. CM will follow and assist with DC planning.
--- NOTE | 2023-02-11 13:10 | PM.DS ---
DS: Providers Provider Date of Service: 02/11/23 Date of admission: 02/10/23 11:30 Primary care physician: BRENDA Dee Consults: 02/09/23 19:29 Consult to Neurology Routine Consulting Provider: [facility] Reason for consultation: ?seizure vs tia DS: Diagnosis Discharge Diagnosis (1) Encephalopathy: Status: Acute DS: Summary Hospital Course Hospital Course: Chief Complaint: ams, left facial droop 67-year-old male with history of TIA, CAD s/p CABG, ischemic cardiomyopathy, aortic insufficiency, unspecified CHF, COPD, vascular dementia with mood disorder, schizoaffective disorder, hypertension, and idiopathic neuropathy presents to the ED earlier today via EMS from [facility] where he resides for evaluation of unresponsiveness, altered mental status and left-sided facial droop. Per SNF staff, patient awoke this morning and was ambulatory around 09:00. Around 115 this afternoon, patient was found unresponsive in bed with oximetry 80%. When aroused, he was noted to have left-sided facial droop, generalized weakness, confusion and was noted to be moaning. Per staff, his baseline is alert and oriented with some confusion. EMS was called and patient was suctioned x2 and placed on non-rebreather maintaining oximetry of 95%. No known seizure history. He arrived to the ED on stroke alert. Vitals at the time revealed a mild hypertension 143/81, vitals otherwise stable, maintaining oximetry 99% on 4 L supplemental O2 via nasal cannula. Hematology studies unremarkable. Renal function normal, electrolyte levels normal. Total CK 71. Troponin 5.7, BNP 34. Coag studies normal. VBG reassuring with pH 7.40, pCO2 36, bicarb 23. Valproic acid level slightly subtherapeutic at 32.5. Head CT negative for any acute intracranial abnormality or space-occupying lesion. No diagnostic evidence of acute cerebral infarction. There is prominent age-related cerebral atrophy. CT of the head/neck negative for any hemodynamically significant stenosis or LVO though assessment of the bilateral vertebral artery origins was nondiagnostic. There is densely calcified atherosclerotic plaquing of the left carotid bulb resulting in luminal narrowing plaquing of the right cervical ICA contributes to about 50% luminal narrowing. Chest x-ray shows diffuse interstitial prominence and central peribronchial cuffing suggestive of atypical infectious versus inflammatory process and some degree of pulmonary edema. Seen by network development coordinator and on-call neurologist notified. Patient is outside the window for T and K. He did fail a bedside swallow evaluation and is noted to be unable to clears throat, not follow commands and has persistent left-sided facial droop but no other unilateral focal neuro deficits. In the ED, given 1 mg IV lorazepam and 1 L IV NS. Hostital course: The patient presented with acute altered mental status and a facial droop, as detailed earlier. A stroke workup was conducted, including a CT head and CTA of the head and neck, revealing no acute findings. Metabolic workup, which included CBC and BMP, was unremarkable, although the sodium level showed a slight increase from 145 initially to 147 the next day and 143 at the time of discharge. The patient was evaluated by a neurologist who noted, Seizure disorder could not be confirmed or denied. A routine EEG yielded normal results. The clinical history did not align with a typical seizure, and a tox screen for chemically induced encephalopathy was not performed, although it was considered a common possibility. Therefore, the neurologist recommended no further intervention and suggested outpatient follow-up with the primary care physician. Notably, the patient has underlying significant cerebral atrophy leading to degenerative dementia. The patient underwent evaluation by a physical therapist (PT) and was recommended to return to their baseline functioning status. Speech pathology conducted a bedside swallow evaluation and recommended a regular diet and thin liquids. Time Attestation Discharge coordination time: Greater than 30 minutes Quality: Safe Use of Opioids Does Pt have an Active Cancer Diagnosis on the Problem List?: No Quality: Stroke Does the patient have a stroke diagnosis?: No Physical Exam Vital Signs: Vital Signs: Last Vital Signs Temp 98.7 F 02/11/23 11:30 Pulse 87 02/11/23 11:30 Resp 20 02/11/23 11:30 BP 144/81 H 02/11/23 11:30 Pulse Ox 93 02/11/23 11:30 O2 Del Method Room Air 02/11/23 11:30 O2 Flow Rate 4 02/09/23 20:13 Oxygen Flow Rate 4 02/09/23 14:38 BMI result Body Mass Index 25.0 DS: Data Data Completed and Pending Labs on day of discharge: Laboratory Results - last 24 hr 02/09/23 02/10/23 02/10/23 14:37 13:52 15:01 WBC 10.7 RBC 5.11 Hgb 15.6 Hct 46.7 MCV 91.4 MCH 30.5 MCHC 33.4 RDW 14.2 Plt Count 188 MPV 10.1 Absolute Nucleated RBC 0.000 Nucleated RBC % (auto) 0.0 Whole Blood PT 12.9 Whole Blood INR 1.1 Sodium 145 Potassium 4.2 Chloride 113 H Carbon Dioxide 21 L Anion Gap 15 BUN 17 H Creatinine 0.71 Estim Creat Clear Calc 93.0 Estimated GFR > 60 Random Glucose 92 Calcium 8.4 02/11/23 08:51 WBC RBC Hgb Hct MCV MCH MCHC RDW Plt Count MPV Absolute Nucleated RBC Nucleated RBC % (auto) Whole Blood PT Whole Blood INR Sodium 147 H Potassium 3.8 Chloride 115 H Carbon Dioxide 22 Anion Gap 14 BUN 14 Creatinine 0.64 Estim Creat Clear Calc 103.2 Estimated GFR > 60 Random Glucose 98 Calcium 8.3 L Discharge Plan Discharge Anticipated Discharge Date/Time: 02/11/23 13:05 Patient Disposition: Xfer [facility] Discharge Diagnosis: Acute encephalopathy Referrals: [facility] [Outside] - 1 Week Darien Samosn PA [Primary Care Provider] - 1 Week Discharge Medications: Continued atorvastatin 40 mg tablet 40 mg PO BEDTIME chlorpromazine 100 mg tablet 100 mg PO BEDTIME valsartan 80 mg tablet 80 mg PO BID aspirin 81 mg Tablet,Delayed Release (Dr/Ec) 81 mg PO DAILY divalproex 500 mg tablet extended release 24 hr 1,000 mg PO BEDTIME metoprolol succinate 25 mg tablet extended release 24 hr 25 mg PO DAILY divalproex 250 mg tablet extended release 24 hr 250 mg PO BEDTIME ranolazine 500 mg tablet extended release 12 hr 500 mg PO BID cholecalciferol (vitamin D3) 1,250 mcg (50,000 unit) Tablet 1,250 mcg PO QMONTH fluticasone furoate-vilanterol [Breo Ellipta] 100-25 mcg/dose Blister With Device 1 inh INHALATION DAILY Discharge Orders: Discharge Order (Routine); Ordered 02/11/23 Ordered By: Chris Nagel Diet: Advance to usual diet Activity on Discharge: As tolerated Stand Alone Forms: Patient Portal Discharge page Care Plan Goals: recovery from encephalopathy Health Concerns: encephalopathy now resolved Plan of Treatment: to resume prior care and meds Assessment: see above
[2023-02-11 14:32] LABS: Anion Gap 11 (12-20); Carbon Dioxide 25 mmol/L (22-29); Chloride 111 mmol/L (96-108); Potassium 3.5 mmol/L (3.3-5.1); Sodium 143 mmol/L (135-145)
[2023-02-11 15:21] VITALS: BP 123/81; PULSE 80; RESP 18; TEMP 36.8; O2SAT 93
--- NOTE | 2023-02-11 16:10 | MHC.CM.PN ---
Pt has been medically cleared for DC. He will go back to [facility] via ambulance.
== END 2023-02-11 17:35 | disposition intermediate care facility (04) | DRG 70 ==
LOC: HO.ED 15:06 → HO.OBSV 19:40 → HO.EDOVER 02-10 08:19 → HO.IMC 02-10 09:00 → HO.EDOVER 02-10 10:49 → HO.IMC 02-10 16:34
PROVIDERS: Student in an Organized Health Care Education/Training Program; Admitting Provider Physician Assistant; Emergency Provider Internal Medicine; PCP Physician Assistant Medical; Visit Provider Internal Medicine
DX: G93.40 Encephalopathy, unspecified (principal); J96.01 Acute respiratory failure with hypoxia; F01.518 Vascular dementia, unspecified severity, with other behavioral disturbance; E78.5 Hyperlipidemia, unspecified; I10 Essential (primary) hypertension; G40.909 Epilepsy, unspecified, not intractable, without status epilepticus; I25.5 Ischemic cardiomyopathy; I25.10 Atherosclerotic heart disease of native coronary artery without angina pectoris; J44.9 Chronic obstructive pulmonary disease, unspecified; Z95.1 Presence of aortocoronary bypass graft; Z79.51 Long term (current) use of inhaled steroids; Z79.82 Long term (current) use of aspirin; Z79.899 Other long term (current) drug therapy
CPT/HCPCS: 36415; 70450; 70496; 70498; 71045; 80048; 80051; 80053; 80061; 80164; 82550; 82803; 82947; 83880; 84484; 85025; 85027; 85610; 85730; 92610; 93005; 95816; 97116; 97162; 97166; 97530; 99222; 99285; C9113; J0737; J1650; J2060; J2405; Q9967

== ENCOUNTER → 2023-02-09 14:13 | Outpatient (BNV) | payer MEDICARE, MEDICAID, SELFPAY | PROVIDERS: Admitting Provider Physician Assistant; Emergency Provider Internal Medicine; PCP Physician Assistant Medical; Visit Provider Internal Medicine | DX: I44.7 Left bundle-branch block, unspecified (principal); R94.31 Abnormal electrocardiogram [ECG] [EKG] | CPT/HCPCS: 93010 ==

== ENCOUNTER → 2023-02-10 11:30 | Outpatient (BNV) | payer MEDICARE, MEDICAID, SELFPAY | PROVIDERS: Admitting Provider Physician Assistant; Emergency Provider Internal Medicine; PCP Physician Assistant Medical; Visit Provider Physician Assistant | DX: G93.40 Encephalopathy, unspecified (principal) | CPT/HCPCS: 99223; 99239 ==